=== PATIENT | male | born 1955 | race Caucasian/White ===

== ENCOUNTER 2020-05-26 09:52 | Inpatient (IN) | payer MEDICARE, OTHER ==
[~2020-05-26] VITALS: Ht 172.7 cm; Wt 116.6 kg
[~2020-05-26 09:52] MED LIST: NO REPORTED MEDS
--- NOTE | 2020-05-26 10:15 | NUR ---
MARIELOS RA 78 "Homeless from street bystander called +ETOH now w/backpain. Patient a/ox3, breathing even and unlabored, but noted with wheezing. No distress noted. Placed on the panel monitor.
[2020-05-26 10:31] LABS: BASOPHILS % (AUTO) 0.5 % (0.0-2.0); EOSINOPHILS % (AUTO) 0.3 % (0.0-6.0); HEMATOCRIT 41 % (39-51); LYMPHOCYTES # (AUTO) 0.9 /CMM (0.8-4.8); LYMPHOCYTES % (AUTO) 13.4 % (20.0-44.0); MEAN CORPUSCULAR HGB CONC 34 g/dl (31.0-36.0); MEAN CORPUSCULAR VOLUME 107 fL (80-96); MONOCYTES # (AUTO) 1.1 /CMM (0.1-1.30); MONOCYTES % (AUTO) 17.1 % (2.0-12.0); NEUTROPHILS # (AUTO) 4.6 /CMM (1.8-8.9); NEUTROPHILS % (AUTO) 68.7 % (43.0-81.0); PLATELET COUNT (AUTO) 139 /CMM (150-450); RED BLOOD CELL COUNT(AUTO) 3.83 MIL/uL (4.5-6.0); WHITE BLOOD COUNT (AUTO) 6.7 K/uL (4.3-11.0)
[2020-05-26 10:49] LABS: CALCIUM, SERUM 8.8 mg/dL (8.5-10.1); CARBON DIOXIDE 31 mmol/L (21-32); CHLORIDE 97 mmol/L (98-107); CREATININE 1.7 mg/dL (0.6-1.3); GLUCOSE 105 mg/dL (74-106); POTASSIUM 3.9 mmol/L (3.5-5.1); SODIUM SERUM 137 mmol/L (136-145); UREA NITROGEN, BLOOD 19 mg/dL (7-18)
[2020-05-26 11:02] LABS: ALANINE AMINOTRANSFERASE 46 U/L (12-78); ALBUMIN 3.3 g/dL (3.4-5.0); ALKALINE PHOSPHATASE 167 U/L (46-116); ASPARTATE AMINOTRANSFERASE 120 U/L (15-37); B-TYPE NATRIURETIC PEPTIDE 1041 PG/ML (0-125); BILIRUBIN,DIRECT 0.9 mg/dL (0.0-0.2); BILIRUBIN,TOTAL 1.9 mg/dL (0.2-1.0); TOTAL PROTEIN, SERUM 7.7 g/dL (6.4-8.2)
[2020-05-26] MEDS ORDERED: FUROSEMIDE 40 MG TABLET PO ONE (11:30)
[2020-05-26] MEDS ORDERED: FUROSEMIDE 40 MG TABLET ONE (11:45)
[2020-05-26] MEDS ORDERED: ALBUTEROL FS 2.5 MG/0.5 ML VIAL.NEB NEB ONE (12:00)
[2020-05-26] MEDS ORDERED: IPRATROPIUM NEB FS 0.5 MG/2.5 ML AMPUL.NEB NEB ONE (12:00)
[2020-05-26] MEDS ORDERED: ALBUTEROL FS 2.5 MG/3 ML VIAL.NEB ONE (12:08)
[2020-05-26] MEDS ORDERED: IPRATROPIUM NEB FS 0.5 MG/2.5 ML AMPUL.NEB ONE (12:08)
[2020-05-26] MEDS ORDERED: METO50TA16 PO (12:38)
[2020-05-26 12:45] LABS: LYMPHOCYTES % (MANUAL) 16 % (16-48); MONOCYTES % (MANUAL) 13 % (0-11.0); NEUTROPHILS % (MANUAL) 70 (42-76); REACTIVE LYMPHOCYTES 1 % (0-0)
--- NOTE | 2020-05-26 13:11 | NUR ---
epic paged. awaiting hospitalist call back
--- NOTE | 2020-05-26 14:01 | NUR ---
BED 104
--- NOTE | 2020-05-26 14:24 | NUR ---
lab called pt covid result negative (-)
[2020-05-26] MEDS ORDERED: THIAMINE HCL 100 MG TABLET PO ONE (15:30)
[2020-05-26] MEDS ORDERED: ONDANSETRON HCL/PF 4 MG/2 ML VIAL IVP PRN (15:30)
[2020-05-26] MEDS ORDERED: Z GUARD REMEDY 2 OZ OINT TP PRN (15:30)
[2020-05-26] MEDS ORDERED: ACETAMINOPHEN 325 MG TABLET PO PRN (15:30)
--- NOTE | 2020-05-26 15:57 | NUR ---
REPORT GIVEN TO GIL BARONE FOR ANGELA.
[2020-05-26] MEDS ORDERED: HYDROCODONE/APAP 10/325MG TABLET PO PRN (16:00)
--- NOTE | 2020-05-26 16:23 | NUR ---
PATIENT TRANSFERRED TO ROOM 104 VIA ACLS PROTOCOL. PATIENT A/OX4, BREATHING EVEN AND UNLABORED ON O2 AT 2LPM VIA NC FOR COMFORT. ENDORSED TO GIL BARONE.
[2020-05-26] MEDS ORDERED: BUMETANIDE INJ 4 MG in IV NS 0.9% 24 ML IV ONE (16:30)
--- NOTE | 2020-05-26 16:30 | NUR ---
MEDICAL REVIEW COORDINATOR ADMISSION NOTES RECEIVED PT FROM ER ALERT AND ORIENTED X2-3. NOTED WITH SHORTNESS OF BREATH AND WHEEZING NOTED THROUGHOUT LUNG [place]. ADMISSION CARE RENDERED. ON O2 AT 2LPM VIA NC. ON COOKER CLEANER AND READS NSR WITH HR IN 80S. SKIN IS WARM AND DRY TO TOUCH. NOTED DRY / CLOSED SCAB ON LEFT HAND. IV #20 ON RIGHT AC INTACT AND FLUSHED WELL. WILL CONTINUE TO MONITOR.
[2020-05-26] MEDS: METOPROLOL TARTRATE 50 MG TABLET PO SCH (17:21)
--- NOTE | 2020-05-26 18:25 | NUR ---
HEAT TREAT INSPECTOR CLOSING NOTES PT REMAINS ALERT AND ORIENTED X2-3. STILL NOTED WHEEZING DURING EXERTION. ON 02 AT 2LPM VIA NC WITH GOOD TOLERANCE. ALL DUE MEDICATIONS GIVEN ORDERED. IV # 20 ON RIGHT AC REMAINS INTACT AND FLUSHED WELL. TELE MONITOR READS NSR WITH HR IN 80S. CALL LIGHT LEFT WITHIN REACH. WILL ENDORSE TO NEXT SHIFT FOR ANGELA.
[2020-05-26] MEDS ORDERED: VANCOMYCIN 1.25 GM in IV D5W 250 ML IV SCH (19:00)
--- NOTE | 2020-05-26 19:15 | NUR ---
RN OPENING NOTES: RECEIVED PT A/OX2-3 IN BED RESTING COMFORTABLY. PATIENT IN NO S/SX OF ACUTE DISTRESS AT THIS TIME. NO SOB NOTED. PATIENT'S BREATHING IS EVEN AND UNLABORED. PATIENT IS ON 2L OF OXYGEN VIA NC; TOLERATING WELL. PATIENT ON TELE MONITORING READING SINUS RHYTHM HR IS @80s.PATIENT ON REGULAR DIET.NOTED IV SITE ON R AC # 20; PATENT, INTACT AND FLUSHING WELL; NO S/S OF INFECTION OR INFILTRATION. SAFETY MEASURES HAVE BEEN PROVIDED AND IMPLEMENTED. PATIENT BED ALARM IS ON. HEAD OF BED ELEVATED. BED IS LOCKED, IN LOWEST POSITION AND SIDE RAILS UP. CALL LIGHT WITHIN REACH OF THE PATIENT. APPLICABLE ISOLATION PRECAUTIONS IN PLACE. WILL CONTINUE TO MONITOR AND REASSESS FOR ANY CHANGES AND WILL CARRY OUT ANY ONGOING AND ACTIVE MD ORDER.
[2020-05-26 20:00] VITALS: BP 138/82
--- NOTE | 2020-05-26 21:45 | NUR ---
RN NOTES PATIENT NOTED TO BE CONGESTED AND HAVING SOME WHEEZES. SUCTIONING DONE AND REPOSITIONING DONE TOLERATED BY PATIENT. POWERTRAIN ENGINEER MADE AWARE. CALLED CHRISTIANA MACDONALD AND INFORMED ABOUT PERTINENT INFO REGARDING PATIENT AND CURRENT STATUS OF PATIENT ALSO INFORMED CHRISTIANA MACDONALD THAT PT GOT BREATHING TREATMENT, BUMEX AND LASIX IN ER PRIOR TO ADMISSION TO [facility]. SECURED ORDER FOLLOWS: ALBUTEROL INHALER Q4H PRN AND REPEAT CX IN THE MORNING. POWERTRAIN ENGINEER MADE AWARE. WILL CONTINUE TO MONITOR AND REASSESS THROUGHOUT THE SHIFT.
--- NOTE | 2020-05-26 23:00 | NUR ---
RN NOTES PATIENT REMAINS IN NO ACUTE RESPIRATORY DISTRESS AT THIS TIME, NO CHANGES TO CONDITION/STATUS. LICENSED CUSTOMS BROKER WELL AWARE. WILL CONTINUE TO MONITOR AND REASSESS FOR ANY CHANGES THROUGHOUT THE SHIFT
[2020-05-27] VITALS: BP 129/75
--- NOTE | 2020-05-27 03:00 | NUR ---
RN NOTES NO CHANGE IN PATIENT CONDITION AT THIS TIME PATIENT VITALS STABLE, NO SIGNS OF ACUTE RESPIRATORY DISTRESS. SCREW CUTTER MADE AWARE. WILL CONTINUE TO MONITOR AND REASSESS FOR ANY CHANGES THROUGHOUT THE SHIFT.
[2020-05-27 04:00] VITALS: BP 137/67
[2020-05-27 06:10] LABS: BASOPHILS # (AUTO) 0.1 /CMM (0.0-0.2); BASOPHILS % (AUTO) 1.6 % (0.0-2.0); EOSINOPHILS % (AUTO) 3.1 % (0.0-6.0); HEMATOCRIT 37 % (39-51); HEMOGLOBIN 12.5 g/dL (13.5-17.5); LYMPHOCYTES # (AUTO) 1.8 /CMM (0.8-4.8); LYMPHOCYTES % (AUTO) 26.6 % (20.0-44.0); MEAN CORPUSCULAR HGB CONC 34 g/dl (31.0-36.0); MEAN CORPUSCULAR VOLUME 108 fL (80-96); NEUTROPHILS # (AUTO) 3.5 /CMM (1.8-8.9); NEUTROPHILS % (AUTO) 53.7 % (43.0-81.0); PLATELET COUNT (AUTO) 123 /CMM (150-450); RED BLOOD CELL COUNT(AUTO) 3.39 MIL/uL (4.5-6.0); WHITE BLOOD COUNT (AUTO) 6.6 K/uL (4.3-11.0)
--- NOTE | 2020-05-27 06:33 | NUR ---
RN CLOSING NOTES PATIENT REMAINS IN ROOM IN NO SIGNS OF RESPIRATORY DISTRESS. PATIENT SATURATING 97% OF 02. VITAL SIGNS WNL. IV LINE MAINTAINED, INTACT, PATENT AND FLUSHING, NO SITE REDNESS OR INFILTRATION. SAFETY AND APPROPRIATE ISOLATION PRECAUTIONS IN PLACE AND COMFORT MEASURES RENDERED. BED IN LOWEST POSITION, CALL LIGHT WITHIN REACH, BREAKS ON, SIDE RAILS UP. ALL NEEDS ATTENDED, MEDICATIONS GIVEN SCHEDULED AND ORDERED ; SHIFT ASSESSMENT/BEDBATH/SKIN CARE DONE. PATIENT KEPT CLEAN AND DRY. WILL ENDORSE TO INCOMING SHIFT FOR ANGELA WITH ALL PERTINENT INFO REGARDING PATIENT STATUS.
[2020-05-27 06:37] LABS: CALCIUM, SERUM 8.2 mg/dL (8.5-10.1); CREATININE 1.3 mg/dL (0.6-1.3); POTASSIUM 3.5 mmol/L (3.5-5.1)
[2020-05-27 06:38] LABS: ALBUMIN 2.8 g/dL (3.4-5.0); BILIRUBIN,TOTAL 1.7 mg/dL (0.2-1.0); PHOSPHORUS 3.5 mg/dL (2.5-4.9); TOTAL PROTEIN, SERUM 6.6 g/dL (6.4-8.2)
[2020-05-27 06:43] LABS: THYROID STIMULATING HORMONE 4.761 uIU/mL (0.358-3.74)
[2020-05-27 06:54] LABS: EOSINOPHILS % (MANUAL) 3 % (0-4); LYMPHOCYTES % (MANUAL) 19 % (16-48); MONOCYTES % (MANUAL) 9 % (0-11.0); NEUTROPHILS % (MANUAL) 69 (42-76)
--- NOTE | 2020-05-27 07:30 | NUR ---
RN OPENING NOTES Patient present in room , awake, A/Ox3, on NC at 2L of O2, tolerating well, no SOB or distress noted, Tele-monitor readings of SR 80-84, L hand appears with scabs, Regular Diet noted, IV line present on R AC G20, patent and intact, running TKO @ 10cc/hr tolerating well. Safety measures in place, bed is locked in lowest position, HOB elevated, call light in reach, will cont to monitor.
[2020-05-27 08:00] VITALS: BP 157/86
[2020-05-27] MEDS: THIAMINE HCL 100 MG TABLET PO SCH (08:21)
[2020-05-27] MEDS: FOLIC ACID 1 MG TABLET PO SCH (08:21)
[2020-05-27] MEDS: MULTIVITAMINS,THERAGRAN 1 UDTAB TABLET PO SCH (08:21)
[2020-05-27] MEDS: ASPIRIN EC 81 MG TABLET.DR PO SCH (08:22)
[2020-05-27] MEDS: METOPROLOL TARTRATE 50 MG TABLET PO SCH ×2 (08:22→16:40)
[2020-05-27 12:00] VITALS: BP 141/71
--- NOTE | 2020-05-27 12:00 | NUR ---
Dennys Interiano ([phone]) contacted patient , in order to provide future financial help and housing
--- NOTE | 2020-05-27 12:45 | NUR ---
Patient made us aware of his niece Kellie who might call about his status, gave verbal permission to release information to her
--- NOTE | 2020-05-27 15:07 | NUR ---
patient is congested, wheezes sound through the lungs, verbalizes SOB occasionally will administer PRN inhaler
[2020-05-27] MEDS: ALBUTEROL SULFATE INH 18 GM HFA.AER.AD IH PRN (15:11)
[2020-05-27 16:00] VITALS: BP 128/76
[2020-05-27] MEDS: VANCOMYCIN 1.25 GM in IV D5W 250 ML IV SCH (18:29)
--- NOTE | 2020-05-27 19:25 | NUR ---
RN CLOSING NOTES PATIENT REMAINS IN ROOM, TOLERATING O2 THERAPY WELL, NO DISTRESS NOTED, NO SOB, MEDIATIONS GIVEN, COMFORT NEEDS PROVIDED, SAFETY MEASURES IN PLACE, CALL LIGHT IN REACH, WILL ENDORSE TO PM SHIFT RN FOR ANGELA
--- NOTE | 2020-05-27 19:30 | NUR ---
RN NOTE RECEIVED PATIENT AWAKE IN BED, ON [place]I [place]'S, AOX4. PATIENT IN NO S/SX OF ACUTE DISTRESS AT THIS TIME. PATIENT'S BREATHING IS EVEN AND UNLABORED. PATIENT IS ON 2L OF OXYGEN VIA NC; TOLERATING WELL, SATURATING AT 97%. PATIENT ON TELE MONITOR READING SINUS RHYTHM, HR IS 71. PATIENT ON REGULAR DIET, AMBULATORY WITH ASSIST. NOTED IV SITE RAC 20G, PATENT AND FLUSHING WELL; NO S/S OF INFECTION OR INFILTRATION. SAFETY MEASURES IMPLEMENTED PER PROTOCOL. PATIENT BED ALARM IS ON. HEAD OF BED ELEVATED. BED IS LOCKED, IN LOWEST POSITION AND SIDE RAILS UP. CALL LIGHT WITHIN REACH OF THE PATIENT. APPLICABLE ISOLATION PRECAUTIONS IN PLACE. WILL CONTINUE TO MONITOR AND REASSESS FOR ANY CHANGES.
[2020-05-27 20:00] VITALS: BP 130/70
[2020-05-27] MEDS ORDERED: BUMETANIDE INJ 6 MG in IV NS 0.9% 36 ML IV ONE (21:00)
[2020-05-27] MEDS ORDERED: methylPREDNISolone SOD SUCC 125 MG/2ML VIAL IV ONE (21:00)
[2020-05-27] MEDS ORDERED: BUMETANIDE INJ 0.25 MG/ML VIAL ONE ×2 (21:25→21:26)
[2020-05-28] VITALS (7 sets, daily range): BP systolic 133–158; BP diastolic 64–86
[2020-05-28] MEDS: ALBUTEROL SULFATE INH 18 GM HFA.AER.AD IH PRN ×2 (01:00→04:42)
[2020-05-28] MEDS: LORAZEPAM INJ 2 MG/ML VIAL IV PRN (04:01)
[2020-05-28] MEDS: methylPREDNISolone SOD SUCC 125 MG/2ML VIAL IV SCH ×3 (04:38→20:04)
--- NOTE | 2020-05-28 04:46 | NUR ---
RN notes In bed, awake. Noted lung sounds with crackles and wheezing. Reposition for comfort. Head of bed elevated. Suction nasally moderate amount of semi - loose yellowish secretion. Alert with episodes of confusion and forgetfullness. No complaint of pain or discomfort. At about 0400, noted patient to be restless. Removed all tubings, peripheral IV, nasal cannula and monitoring lines. Stood up from bed, ambulate to the door. Told to go back to bed, patient started to be very anxious. Noted with hyperventilation, wheezing and crackles. Administered ativan and Ventolin puff, wtih relief. Put back to bed. Reinserted peripheral IV, procedure well tolerated with good back flow. Kept clean and dry. Needs attended. Continue to monitor. Will endorse to am shift for continuity of care.
[2020-05-28 06:26] LABS: BASOPHILS # (AUTO) 0.1 /CMM (0.0-0.2); BASOPHILS % (AUTO) 1.5 % (0.0-2.0); EOSINOPHILS % (AUTO) 0.1 % (0.0-6.0); HEMATOCRIT 39 % (39-51); HEMOGLOBIN 13.2 g/dL (13.5-17.5); LYMPHOCYTES # (AUTO) 0.7 /CMM (0.8-4.8); LYMPHOCYTES % (AUTO) 16.6 % (20.0-44.0); MEAN CORPUSCULAR HGB CONC 34 g/dl (31.0-36.0); MEAN CORPUSCULAR VOLUME 108 fL (80-96); MONOCYTES # (AUTO) 0.1 /CMM (0.1-1.30); MONOCYTES % (AUTO) 2.7 % (2.0-12.0); NEUTROPHILS # (AUTO) 3.4 /CMM (1.8-8.9); NEUTROPHILS % (AUTO) 79.1 % (43.0-81.0); PLATELET COUNT (AUTO) 121 /CMM (150-450); RED BLOOD CELL COUNT(AUTO) 3.59 MIL/uL (4.5-6.0); WHITE BLOOD COUNT (AUTO) 4.3 K/uL (4.3-11.0)
[2020-05-28 06:56] LABS: CALCIUM, SERUM 8.7 mg/dL (8.5-10.1); MAGNESIUM 1.8 mg/dL (1.8-2.4); PHOSPHORUS 3.3 mg/dL (2.5-4.9); POTASSIUM 3.7 mmol/L (3.5-5.1)
[2020-05-28 08:36] LABS: LYMPHOCYTES % (MANUAL) 20 % (16-48); MONOCYTES % (MANUAL) 4 % (0-11.0); NEUTROPHILS % (MANUAL) 76 (42-76)
[2020-05-28] MEDS: THIAMINE HCL 100 MG TABLET PO SCH (08:41)
[2020-05-28] MEDS: FOLIC ACID 1 MG TABLET PO SCH (08:41)
[2020-05-28] MEDS: ASPIRIN EC 81 MG TABLET.DR PO SCH (08:41)
[2020-05-28] MEDS: METOPROLOL TARTRATE 50 MG TABLET PO SCH ×2 (08:41→17:25)
[2020-05-28] MEDS: MULTIVITAMINS,THERAGRAN 1 UDTAB TABLET PO SCH (08:41)
[2020-05-28] MEDS: BUMETANIDE INJ 0.25 MG/ML VIAL IV SCH ×2 (15:34→17:23)
[2020-05-28] MEDS: VANCOMYCIN 1.25 GM in IV D5W 250 ML IV SCH (17:23)
--- NOTE | 2020-05-28 19:15 | NUR ---
RN OPENING NOTE RECEIVED PATIENT IN BED RESTING ALERT ORIENTED X2-3 VERBALLY RESPONSIVE,ON TELE MONITORING,LUNGS SOUND NOTED WITH CRACKLES AND WHEEZING,ON 4L OXYGEN VIA NASAL CANNULA ,O2:93% IV SITE IS ON LEFT HAND INTACT PATENT,FLUSHED,CONTINENT TO BOWEL/BLADDER,BED IN LOW POSITION AND LOCKED,SAFETY MEASURE IMPLEMENT,CALL LIGHT WITHIN REACH,CONTINUE TO MONITOR,
[2020-05-29] VITALS: BP 132/70
[2020-05-29 04:00] VITALS: BP 141/75
[2020-05-29] MEDS: methylPREDNISolone SOD SUCC 125 MG/2ML VIAL IV SCH ×3 (04:50→21:00)
[2020-05-29 06:30] LABS: CALCIUM, SERUM 8.8 mg/dL (8.5-10.1); CREATININE 1.1 mg/dL (0.6-1.3); POTASSIUM 3.6 mmol/L (3.5-5.1)
--- NOTE | 2020-05-29 06:35 | NUR ---
RN CLOSING NOTE PATIENT REMAINS IN ALERT ORIENTED X2-3 ABLE TO MAKE NEEDS KNOWN,ON 4L/MIN OXYGEN VIA NASAL CANNULA O2:95% ,LUNGS SOUND NOTED WITH CRACKLES AND WHEEZING,HEAD OF BED ELEVATED ALL THE TIME,ALL DUE MEDS GIVEN MD ORDERED KEPT CLEAN AND DRY ALL THE TIME,KEPT COMFORTABLE ,ENDORSE NEXT COMING SHIFT FOR CONTINUATION OF CARE.
--- NOTE | 2020-05-29 07:30 | NUR ---
RN TELE1 PATIENT IS IN BED, NO S/S OF DISTRESS, ON 4L NASAL CANULA O2 SAT 93%, A/O X 2-3, TELE MONITOR IN PLACE, SINUS RHYTHM, HR 80S, CONTINENT, BILATERAL LEG CELLULITIS, R GOOT SWELLING AND REDNESS, FALL RISK, BED ALARM ON, L HAND, 22 G IV INTACT FLUSHES WELL CLEAN DRY, BED IN LOWEST LOCKED POSITION, SAFETY MEASURES IN PLACE, WILL CONTINUE TO MONITOR.
[2020-05-29 08:00] VITALS: BP 143/78
[2020-05-29] MEDS: MULTIVITAMINS,THERAGRAN 1 UDTAB TABLET PO SCH (08:39)
[2020-05-29] MEDS: FOLIC ACID 1 MG TABLET PO SCH (08:39)
[2020-05-29] MEDS: THIAMINE HCL 100 MG TABLET PO SCH (08:40)
[2020-05-29] MEDS: METOPROLOL TARTRATE 50 MG TABLET PO SCH ×2 (08:41→17:54)
[2020-05-29] MEDS: ASPIRIN EC 81 MG TABLET.DR PO SCH (08:41)
[2020-05-29] MEDS: BUMETANIDE INJ 0.25 MG/ML VIAL IV SCH (08:42)
--- NOTE | 2020-05-29 11:46 | NUR ---
SW attempted to meet with the patient at bedside. Per COVID-19 protocol patient is currently under isolation. Patient PCR result pending. SW confirmed with LIZABETH Givens regarding patient status. Per Tosha, patient is confused and may not be interviewable. PEREZ asked LIZABETH Givens to provide patient with a hospital phone for this SW to attempt to speak with the patient. LIZABETH Givens, confirmed patient had a phone. SW thanked LIZABETH Givens for this information. SW to attempt to speak with the patient. SW remains available for all needs regarding this patient.
--- NOTE | 2020-05-29 11:50 | NUR ---
SW attempted to speak with the patient for social media designer assessment. Patient did not answer hospital phone. SW unable to meet at bedside due to COVID-19 precautions. Plan: SW to attempt to speak with the patient at a later time. SW remains available for all needs regarding this patient.
[2020-05-29] MEDS: VANCOMYCIN 1.25 GM in IV D5W 250 ML IV SCH (12:00)
--- NOTE | 2020-05-29 12:30 | NUR ---
RN TELE1 PATIENT REFUSED 1200 VITAL SIGNS WILL ATTEMPT TO GET THEM LATER
[2020-05-29] MEDS: LORAZEPAM INJ 2 MG/ML VIAL IV PRN (12:58)
--- NOTE | 2020-05-29 13:00 | NUR ---
RN TELE1 PATIENT REMOVED IVs AND REFUSED TO HAVE ANOTHER ONE PLACE. EDUCATED ON REASONING FOR vancomycin and solumedrol, BUT PATIENT CONTINUES TO REFUSE. CONTACTING FOR ORDERS. 9
--- NOTE | 2020-05-29 16:00 | NUR ---
RN TELE1 LIZY BUENROSTRO MD, WAS CONTACTED AND STILL AWAITING CALL BACK TO GET ORDERS FOR PATIENT MEDICATIONS.
--- NOTE | 2020-05-29 16:30 | NUR ---
RN TELE1 PATIENT REFUSED 1600 VITALS. WILL TRY AGAIN SOON.
--- NOTE | 2020-05-29 16:40 | NUR ---
RN TELE1 SPOKE TO LIZY ROBERTS, NOTIFIED OF PATIENTS BEHAVIOR, HE ORDERED 1 TIME ZIBREXA. EXPLAINED THAT RNs ATTEMPTED TO GET IVs IN THE PATIENT 3 TIMES BUT PATIENT IS AGGREVATED AND MOVING SO WAS UNABLE TO KEEP THE IV IN. ALEJANDRA ORDERED TO HOLD IV MEDS FOR THE EVENING TO ALLOW THE PATIENT TO REST. REQUESTED A MIDLINE TO BE PLACED. CHECKED ON THE PATIENTS STATUS OFTEN, WILL NOTIFY MD OF ANY CHANGES.
[2020-05-29] MEDS ORDERED: OLANZAPINE 10 MG VIAL IM ONE (17:00)
[2020-05-29] MEDS: BUMETANIDE (1 MG) 1 MG TABLET PO SCH (17:53)
[2020-05-29 18:00] VITALS: BP 146/76
--- NOTE | 2020-05-29 19:02 | NUR ---
RN MED SURG1 RICARDO TRIED TO PERFORM ECHO ON THE PATIENT BUT THE PATIENT WOULD NOT STOP MOVING SO HE WAS UNABLE TO COMPLETE IT. HE TRIED EARLIER TODAY WITH THE SAME PROBLEM. HE SAID HE WILL COME BACK TOMORROW AND TRY AGAIN.
--- NOTE | 2020-05-29 19:30 | NUR ---
RN MED SURG1 PATIENT IN BED RESTING, TODAY PATIENT BECAME DISTRAUGHT AND WAS WANDERING AROUND THE ROOM CONFUSED AND SHOUTING. SECURITY WAS PRESENT TO HELP CALM THE PATIENT AND KEEP HIM IN HIS ROOM. NO IV IN PLACE MD AWARE, ENDORSED TO STEREO MAP PLOTTER OPERATOR MD ORDERS, REMOVED NASAL CANULA, O2 SAT >95%, AMBULATORY, BED IN LOWEST LOCKED POSITION BED ALARM LOAD BLOCKER LIGHT WITHIN REACH, SAFETY MEASURES IN PLACE.
[2020-05-29 20:00] VITALS: BP 157/71
--- NOTE | 2020-05-29 20:00 | NUR ---
RN NOTES PATIENT IN ROOM CONFUSED AND SHOUTING. A/O X2-3, NO S/S OF DISTRESS, O2 SAT 95% IN ROOM AIR. CONTINENT, BILATERAL LEG CELLULITIS, R FOOT SWELLING AND REDNESS, FALL RISK, BED ALARM ON AND 1:1 SITTER IN ROOM. NO IV IN PLACE. PER AM NURSE, PATIENT REMOVED IV LINES AND O2 VIA NASAL CANNULA AND ATTEMPTED MULTIPLE TIMES TO INSERT IV LINE BUT REFUSED. LIZY ALEJANDRA AWARE AND TO HOLD EVENING MEDS AND WILL PLACE AN ORDER FOR MIDLINE TOMORROW. BED IN LOWEST LOCKED POSITION, SAFETY MEASURES IN PLACE, WILL CONTINUE TO MONITOR.
--- NOTE | 2020-05-29 21:07 | NUR ---
PATIENT SEEN BY DR. DOREEN MACDONALD AT THIS TIME, WILL WAIT FOR ANY NEW ORDERS.
--- NOTE | 2020-05-29 21:14 | NUR ---
DR. DOREEN MACDONALD WITH NEW ORDER FOR HALDOL1 MG PO TID AND HALDOL 5MG IM Q4 NOTED.
[2020-05-29] MEDS ORDERED: HALOPERIDOL LACTATE INJ 5 MG/ML VIAL IM PRN (21:30)
[2020-05-30 04:00] VITALS: BP 159/70
[2020-05-30] MEDS: methylPREDNISolone SOD SUCC 125 MG/2ML VIAL IV SCH ×3 (05:00→21:22)
[2020-05-30] MEDS: VANCOMYCIN 1.25 GM in IV D5W 250 ML IV SCH ×2 (06:00→23:41)
--- NOTE | 2020-05-30 06:04 | NUR ---
SOLUMEDROL 60MG IV NOT GIVEN AT 2100 AND 0500 AND VANCO 1.25 MG 0600 NOT GIVEN. NO IV LINE, PATIENT IS COMBATIVE WHEN ATTEMPTING TO REINSERT. LIZY BUENROSTRO AWARE. WAITING FOR MIDLINE INSERTION TODAY. WILL ENDORSE TO NEXT SHIFT.
[2020-05-30 06:27] LABS: BASOPHILS % (AUTO) 0.2 % (0.0-2.0); EOSINOPHILS % (AUTO) 0.9 % (0.0-6.0); HEMATOCRIT 37 % (39-51); HEMOGLOBIN 12.4 g/dL (13.5-17.5); LYMPHOCYTES # (AUTO) 2.1 /CMM (0.8-4.8); LYMPHOCYTES % (AUTO) 28.7 % (20.0-44.0); MEAN CORPUSCULAR HGB CONC 33 g/dl (31.0-36.0); MEAN CORPUSCULAR VOLUME 109 fL (80-96); MONOCYTES % (AUTO) 13.6 % (2.0-12.0); NEUTROPHILS # (AUTO) 4.2 /CMM (1.8-8.9); NEUTROPHILS % (AUTO) 56.6 % (43.0-81.0); PLATELET COUNT (AUTO) 141 /CMM (150-450); RED BLOOD CELL COUNT(AUTO) 3.41 MIL/uL (4.5-6.0); WHITE BLOOD COUNT (AUTO) 7.4 K/uL (4.3-11.0)
--- NOTE | 2020-05-30 06:58 | NUR ---
RN NOTES PATIENT A/O X2-3 WITH CONFUSION, NO S/S OF DISTRESS, O2 SAT 99% ON O2 4LPM VIA NASAL CANNULA. FALL RISK, BED ALARM ON AND 1:1 SITTER IN ROOM. NO IV IN PLACE. FOR MIDLINE INSERTION TODAY. BED IN LOWEST AND LOCKED POSITION, SAFETY MEASURES IN PLACE, CALL LIGHT WITHIN REACH. WILL ENDORSE TO ONCOMING SHIFT.
[2020-05-30 07:01] LABS: CALCIUM, SERUM 8.5 mg/dL (8.5-10.1); MAGNESIUM 1.9 mg/dL (1.8-2.4); PHOSPHORUS 4.4 mg/dL (2.5-4.9); POTASSIUM 3.2 mmol/L (3.5-5.1)
[2020-05-30 07:04] LABS: LYMPHOCYTES % (MANUAL) 31 % (16-48); MONOCYTES % (MANUAL) 9 % (0-11.0); NEUTROPHILS % (MANUAL) 60 (42-76)
--- NOTE | 2020-05-30 07:28 | NUR ---
RN TELE1 RECEIVED REPORT ON PATIENT AND IMMEDIATELY TRANSFERRED TO MED SURG. PROVIDING REPORT IN PERSON ONCE TRANSFERRED. PATIENT IS STABLE, NO S/S OF DISTRESS, WILL ENDORSE CARE TO NEW NURSE.
--- NOTE | 2020-05-30 07:45 | NUR ---
m/s hat and cap opener: notes pt's pcr is negative and received pt from m/s 1 with sitter via bed. pt sounds asleep. resp. even and unlabored. will continue to monitor. Addendum: 05/30/20 at 1126 by JULIEN PAYNE ANSWERER pt wearing his pants on when arrived in unit, unable to assess skin, but noted ble swelling with redness and with multiple skin discolorations on upper ext's and chest area visibly.
--- NOTE | 2020-05-30 10:00 | NUR ---
m/s log deck tender: notes pt still sleeping at interval, sitter at bedside. will continue to monitor.
[2020-05-30] MEDS ORDERED: POTASSIUM CHLORIDE 20 MEQ TAB.PRT.SR PO ONE (10:30)
[2020-05-30 11:00] VITALS: BP 145/70
[2020-05-30] MEDS: ASPIRIN EC 81 MG TABLET.DR PO SCH (11:07)
[2020-05-30] MEDS: BUMETANIDE (1 MG) 1 MG TABLET PO SCH ×2 (11:07→17:17)
[2020-05-30] MEDS: MULTIVITAMINS,THERAGRAN 1 UDTAB TABLET PO SCH (11:07)
[2020-05-30] MEDS: HALOPERIDOL 1 MG TABLET PO SCH ×3 (11:07→17:17)
[2020-05-30] MEDS: METOPROLOL TARTRATE 50 MG TABLET PO SCH ×2 (11:07→17:18)
[2020-05-30] MEDS: THIAMINE HCL 100 MG TABLET PO SCH (11:07)
[2020-05-30] MEDS: FOLIC ACID 1 MG TABLET PO SCH (11:07)
--- NOTE | 2020-05-30 11:27 | NUR ---
SW called and spoke to the pt.'s nurse to verify if pt. is interviewable. Per nurse, the pt. is asleep and not rousable to verbal cues. Per nurse, the pt. has been combative, confused and is experiencing homelessness. There is no point of contact for pt. at this time. Plan: SW will attempt to interview pt. in person at a later time. SW requested that nurse call SW when pt. is awake/ interviewable. Patient has negative test result for PCR & rapid COVID-19. SW will be available as needed.
--- NOTE | 2020-05-30 13:50 | NUR ---
m/s glass inserter: notes pt allow me to attempt an iv insertion, but unsuccessful. awaiting for picc line nurse. sitter remains at bedside. will continue to monitor.
[2020-05-30] MEDS: VALSARTAN 80 MG TABLET PO SCH (14:09)
--- NOTE | 2020-05-30 14:30 | NUR ---
m/s hand cutter: notes midline inserted to left upper arm, gauze #[id number], tolerated procedure. sitter remains at bedside. pt always dozing and off. will continue to monitor.
[2020-05-30 16:45] VITALS: BP 162/89
--- NOTE | 2020-05-30 19:05 | NUR ---
m/s board machine set up operator: notes report given to bridget (kenya) for continuity of care.
--- NOTE | 2020-05-30 19:10 | NUR ---
MS/RN OPENING NOTES: RECEIVED PATIENT IN BED. A/O X2 WITH CONFUSION, NO S/S OF DISTRESS, SATURATING WELL ON RA. SITTER AT BEDSIDE. SAFETY MEASURES IN PLACE. FALL RISK, BED ALARM ON AND, 1:1 SITTER IN ROOM. IV MIDLINE IN THE MARY #18G, INTACT AND PATENT. SAFETY MEASURES IN PLACE. BED IN LOWEST AND LOCKED POSITION, CALL LIGHT WITHIN REACH. WILL CONTINUE TO MONITOR.
[2020-05-30 20:00] VITALS: BP 159/82
[2020-05-30 20:08] LABS: BILIRUBIN,URINE NEGATIVE (NEGATIVE); BLOOD, URINE NEGATIVE Ery/uL (NEGATIVE); COLOR,URINE YELLOW (YELLOW); LEUKOCYTE ESTERASE ,URINE NEGATIVE (NEGATIVE); NITRITE, URINE NEGATIVE (NEGATIVE); PH,URINE 8.5 (5.0-8.0); PROTEIN,URINE NEGATIVE (NEGATIVE); UGLUCOSE NEGATIVE (NEGATIVE)
[2020-05-30 20:30] LABS: BACTERIA,URINE Rare /HPF (None Seen); SQUAMOUS EPITHELIAL CELL,UR Rare /HPF (None Seen); WBC,URINE 0-2 /HPF (0-3)
[2020-05-30 20:56] LABS: CREATININE, URINE 81.2 MG/DL (30.0-125.0)
[2020-05-31] MEDS: methylPREDNISolone SOD SUCC 125 MG/2ML VIAL IV SCH ×3 (04:56→21:41)
[2020-05-31 05:30] LABS: URINE TOTAL PROTEIN 20.5 mg/dL (0-11.9)
[2020-05-31 06:09] LABS: HEMATOCRIT 38 % (39-51); HEMOGLOBIN 12.8 g/dL (13.5-17.5); LYMPHOCYTES # (AUTO) 0.9 /CMM (0.8-4.8); LYMPHOCYTES % (AUTO) 14.3 % (20.0-44.0); MEAN CORPUSCULAR HGB CONC 34 g/dl (31.0-36.0); MEAN CORPUSCULAR VOLUME 109 fL (80-96); MONOCYTES # (AUTO) 0.2 /CMM (0.1-1.30); MONOCYTES % (AUTO) 3.3 % (2.0-12.0); NEUTROPHILS # (AUTO) 5.2 /CMM (1.8-8.9); NEUTROPHILS % (AUTO) 82.4 % (43.0-81.0); PLATELET COUNT (AUTO) 132 /CMM (150-450); RED BLOOD CELL COUNT(AUTO) 3.47 MIL/uL (4.5-6.0); WHITE BLOOD COUNT (AUTO) 6.3 K/uL (4.3-11.0)
--- NOTE | 2020-05-31 06:33 | NUR ---
MS/RN NOTES: LAB CALLED FOR CRITICAL RESULT FOR POTASSIUM. 2.7. PER CALL CENTER ASSOCIATE, "THE SPECIMEN SEEMS CONTAMINATED." CHARGE NURSE YOVANI AWARE. WILL REDRAW AGAIN.
--- NOTE | 2020-05-31 06:58 | NUR ---
MS/RN CLOSING NOTES: PATIENT REMAINS IN BED. A/O X2 WITH CONFUSION, NO S/S OF DISTRESS, SATURATING WELL ON RA. SITTER AT BEDSIDE. SAFETY MEASURES IN PLACE. FALL RISK, BED ALARM ON AND, 1:1 SITTER IN ROOM. IV MIDLINE IN THE MARY #18G, INTACT AND PATENT. SAFETY MEASURES IN PLACE. BED IN LOWEST AND LOCKED POSITION, CALL LIGHT WITHIN REACH. WILL ENDORSE TO DAY SHIFT FOR ANGELA.
[2020-05-31 07:27] LABS: LYMPHOCYTES % (MANUAL) 11 % (16-48); MONOCYTES % (MANUAL) 2 % (0-11.0); NEUTROPHILS % (MANUAL) 87 (42-76)
--- NOTE | 2020-05-31 07:50 | NUR ---
MS RN OPENING NOTES BEDSIDE ENDORSEMENT DONE. PATIENT IS IN BED RESTING, AWAKE AND VERBALLY RESPONSIVE. A/O X2, MAY HAVE EPISODE OF FORGETFULNESS. BREATHING EVEN AND UNLABORED, TOLERATING RA. IV MIDLINE IN THE MARY #18G, INTACT AND PATENT. SITTER AT BEDSIDE. SAFETY MEASURES IN PLACE: BED LOCKED AND ON LOWEST POSITION, CALL LIGHT WITHIN REACH, SR UP X2. WILL CONTINUE TO MONITOR.
[2020-05-31] MEDS: VALSARTAN 80 MG TABLET PO SCH (10:04)
[2020-05-31] MEDS: THIAMINE HCL 100 MG TABLET PO SCH (10:04)
[2020-05-31] MEDS: FOLIC ACID 1 MG TABLET PO SCH (10:05)
[2020-05-31] MEDS: MULTIVITAMINS,THERAGRAN 1 UDTAB TABLET PO SCH (10:05)
[2020-05-31] MEDS: ASPIRIN EC 81 MG TABLET.DR PO SCH (10:05)
[2020-05-31] MEDS: BUMETANIDE (1 MG) 1 MG TABLET PO SCH ×2 (10:05→17:40)
[2020-05-31] MEDS: HALOPERIDOL 1 MG TABLET PO SCH ×3 (10:05→17:41)
[2020-05-31] MEDS: METOPROLOL TARTRATE 50 MG TABLET PO SCH ×2 (10:05→17:41)
[2020-05-31 11:19] LABS: CALCIUM, SERUM 8.9 mg/dL (8.5-10.1); CREATININE 1.2 mg/dL (0.6-1.3); MAGNESIUM 1.9 mg/dL (1.8-2.4); PHOSPHORUS 3.8 mg/dL (2.5-4.9); POTASSIUM 3.4 mmol/L (3.5-5.1)
[2020-05-31] MEDS ORDERED: POTASSIUM CHLORIDE 20 MEQ TAB.PRT.SR PO ONE (14:00)
--- NOTE | 2020-05-31 16:37 | NUR ---
SW attempted to follow up with this patient. Patient is alert and oriented x2. Patient is unable to provide information at this time. Per Case Management note on 05/27 patient expressed wanting a snf facility placement. SW will attempt to follow-up with the patient again at a later time. There is no information for next of kin at this time. Plan: This SW to collaborate with Case Management team for a safe and proper discharge regarding this patient. SW remains available for all needs regarding this patient.
[2020-05-31] MEDS: VANCOMYCIN 1.25 GM in IV D5W 250 ML IV SCH (18:09)
--- NOTE | 2020-05-31 19:41 | NUR ---
MS RN CLOSING NOTES PATIENT IS IN BED RESTING, AWAKE AND VERBALLY RESPONSIVE. A/O X2, ABLE TO MAKE NEEDS KNOWN. BREATHING EVEN AND UNLABORED, TOLERATING RA. IV MIDLINE IN THE MARY #18G, INTACT AND PATENT. IV VANCOMYCIN GIVEN, INFUSING WELL. MEDS GIVEN AND TOLERATED BY PATIENT. SITTER AT BEDSIDE. SAFETY MEASURES MAINTAINED: BED LOCKED AND ON LOWEST POSITION, CALL LIGHT WITHIN REACH, SR UP X2. ENDORSE TO EVENT SERVICES MANAGER RN FOR ANGELA.
--- NOTE | 2020-05-31 19:45 | NUR ---
MS RN OPENING NOTES PATIENT IN BED RESTING COMFORTABLY, ALERT AND ORIENTED X2, WITH EPISODES OF FORGETFULNESS. RESPIRATIONS ARE EVEN AND UNLABORED, TOLERATING ROOM AIR. IV MIDLINE IN THE MARY #18G, INTACT AND PATENT. SITTER AT BEDSIDE. SAFETY MEASURES IN PLACE. BED LOCKED AND ON LOWEST POSITION, CALL LIGHT WITHIN REACH, SR UP X2. WILL CONTINUE TO MONITOR.
[2020-05-31 20:00] VITALS: BP 137/67
[2020-06-01] MEDS: methylPREDNISolone SOD SUCC 125 MG/2ML VIAL IV SCH ×2 (05:33→13:00)
--- NOTE | 2020-06-01 06:50 | NUR ---
MS RN CLOSING NOTES PATIENT IN BED RESTING COMFORTABLY, ALERT AND ORIENTED X2, WITH EPISODES OF FORGETFULNESS. RESPIRATIONS ARE EVEN AND UNLABORED, TOLERATING ON ROOM AIR. IV MIDLINE IN THE MARY #18G, INTACT AND PATENT. SITTER AT BEDSIDE FOR SAFETY AND MONITORING. SAFETY MEASURES MAINTAINED. BED LOCKED AND ON LOWEST POSITION, CALL LIGHT WITHIN REACH, SIDE RAILS UP X2. WILL ENDORSE TO DAY SHIFT NURSE FOR CONTINUITY OF CARE. .
[2020-06-01] MEDS ORDERED: LEVOTHYROXINE SODIUM 25 MCG TABLET PO SCH (07:30)
[2020-06-01 08:52] LABS: BASOPHILS % (AUTO) 0.1 % (0.0-2.0); HEMATOCRIT 46 % (39-51); HEMOGLOBIN 15.3 g/dL (13.5-17.5); LYMPHOCYTES # (AUTO) 1.1 /CMM (0.8-4.8); LYMPHOCYTES % (AUTO) 8.9 % (20.0-44.0); MEAN CORPUSCULAR HGB CONC 33 g/dl (31.0-36.0); MEAN CORPUSCULAR VOLUME 108 fL (80-96); MONOCYTES # (AUTO) 0.5 /CMM (0.1-1.30); MONOCYTES % (AUTO) 3.7 % (2.0-12.0); NEUTROPHILS # (AUTO) 10.9 /CMM (1.8-8.9); NEUTROPHILS % (AUTO) 87.3 % (43.0-81.0); PLATELET COUNT (AUTO) 168 /CMM (150-450); RED BLOOD CELL COUNT(AUTO) 4.26 MIL/uL (4.5-6.0); WHITE BLOOD COUNT (AUTO) 12.5 K/uL (4.3-11.0)
[2020-06-01 09:17] LABS: CALCIUM, SERUM 9.1 mg/dL (8.5-10.1); CREATININE 1.1 mg/dL (0.6-1.3); MAGNESIUM 2.1 mg/dL (1.8-2.4); POTASSIUM 3.9 mmol/L (3.5-5.1)
[2020-06-01] MEDS: VALSARTAN 80 MG TABLET PO SCH (09:26)
[2020-06-01] MEDS: THIAMINE HCL 100 MG TABLET PO SCH (09:26)
[2020-06-01] MEDS: BUMETANIDE (1 MG) 1 MG TABLET PO SCH (09:26)
[2020-06-01] MEDS: ASPIRIN EC 81 MG TABLET.DR PO SCH (09:26)
[2020-06-01] MEDS: MULTIVITAMINS,THERAGRAN 1 UDTAB TABLET PO SCH (09:26)
[2020-06-01 09:27] VITALS: BP 151/78
[2020-06-01] MEDS: FOLIC ACID 1 MG TABLET PO SCH (09:27)
[2020-06-01] MEDS: HALOPERIDOL 1 MG TABLET PO SCH ×2 (09:27→14:11)
[2020-06-01] MEDS: METOPROLOL TARTRATE 50 MG TABLET PO SCH (09:27)
[2020-06-01] MEDS ORDERED: HALO1TAB5 PO (10:36)
[2020-06-01] MEDS ORDERED: PRED20TA PO (10:36)
[2020-06-01] MEDS ORDERED: Thiamine HCL PO (10:36)
[2020-06-01] MEDS ORDERED: VALS80TA2 PO (10:36)
[2020-06-01] MEDS ORDERED: LEVO25TA7 PO (10:36)
[2020-06-01] MEDS ORDERED: BUME1TAB8 PO (10:36)
[2020-06-01] MEDS ORDERED: ASPI-1420 PO (10:36)
[2020-06-01] MEDS ORDERED: Folic Acid PO (10:36)
[2020-06-01] MEDS ORDERED: ALBU18HF2 IH (10:36)
[2020-06-01] MEDS: VANCOMYCIN 1.25 GM in IV D5W 250 ML IV SCH (12:00)
--- NOTE | 2020-06-01 12:33 | NUR ---
RN -NOTES PATIENT REFUSED VANCOMYCIN IV DESPITE EXPLANATIONS RISK AND BENEFITS. STATED" I DON'T NEED ANY MEDICATIONS NOW I JUST WANT TO LEAVE, AND I DON'T CARE WHAT IS THE DOCTOR ORDER". ERNIE BUENROSTRO MADE AWARE.
[2020-06-01 13:01] LABS: LYMPHOCYTES % (MANUAL) 11 % (16-48); MONOCYTES % (MANUAL) 2 % (0-11.0); NEUTROPHILS % (MANUAL) 87 (42-76)
--- NOTE | 2020-06-01 16:53 | NUR ---
RN-DISCHARGE NOTES PATIENT WAS D/Cd TO [facility].REPORT WAS GIVEN TO PRADEEP ( DESKTOP PUBLISHING SPECIALIST) ALSO DISTRIBUTION SALES REPRESENTATIVE MADE AWARE THAT PATIENT WAS UNABLE TO SEE CLEARLY. PATIENT NIRAMÓN OHGAN WAS MADE AWARE OF THE DISCHARGE. PATIENT LEFT THE UNIT IN STABLE CONDITION A/OX3 ABLE TO AMBULATE WITH ASSIST.PATIENT STRONGLY REFUSED FLU VACCINE AND PNA VACCINE ALSO REFUSED FULL BODY ASSESSMENT PRIOR TO DISCHARGE DESPITE EXPLANATIONS OF HOSPITAL POLICIES.
== END 2020-06-01 16:50 | DRG 602 ==
LOC: ER 10:04 → TELE1 14:16 → MEDSG1 05-29 16:07 → MED 05-30 07:46
PROVIDERS: ADMIT Nurse Practitioner Acute Care; ATTEND Nurse Practitioner Acute Care
PROC: 05HY33Z Insertion of Infusion Device into Upper Vein, Percutaneous Approach (ICD-10-PCS; principal; 2020-05-30)
DX: L03.115 Cellulitis of right lower limb (principal); N17.0 Acute kidney failure with tubular necrosis; I50.33 Acute on chronic diastolic (congestive) heart failure; E87.0 Hyperosmolality and hypernatremia; L03.116 Cellulitis of left lower limb; I11.0 Hypertensive heart disease with heart failure; Z59.0 Homelessness; D64.9 Anemia, unspecified; E87.6 Hypokalemia; F17.210 Nicotine dependence, cigarettes, uncomplicated; E80.6 Other disorders of bilirubin metabolism; Z20.828 Contact with and (suspected) exposure to other viral communicable diseases; D75.89 Other specified diseases of blood and blood-forming organs; R74.01 Elevation of levels of liver transaminase levels; I87.8 Other specified disorders of veins; M89.9 Disorder of bone, unspecified; D69.59 Other secondary thrombocytopenia; F29 Unspecified psychosis not due to a substance or known physiological condition; E04.2 Nontoxic multinodular goiter; Z72.89 Other problems related to lifestyle
CPT/HCPCS: 36415; 71045-TC; 76536-TC; 80048-TC; 80053-TC; 80061-TC; 80076-TC; 80202-TC; 81001; 82570-TC; 82728-TC; 83540-TC; 83735-TC; 83880; 83935-TC; 84100-TC; 84155-TC; 84439-TC; 84443-TC; 84484-TC; 85025-TC; 87081-TC; 93307-TC; 97110-TC; 97116-TC; 97530-TC; G0378; G0480; J2060; J2930; J3370; J3490; J7030; J7050; J7060; U0003